=== PATIENT | female | born 1960 | race Caucasian/White ===

== ENCOUNTER 2024-01-18 11:36 | Outpatient (CLI) | payer MEDICARE, SELFPAY ==
[2024-01-18 12:50] LABS: Basophils Absolute Auto 0.1 K/mm3 (0.0-0.1); Basophils Percent Auto 0.6 % (0.2-1.2); Eosinophils Absolute Auto 0.2 K/mm3 (0-0.3); Eosinophils Percent Auto 1.5 % (0-4.4); Hematocrit 45.2 % (37.0-47.0); Hemoglobin 14.7 g/dL (12.0-15.0); Immature Granulocyte Absolute 0.03 K/mm3 (0.00-0.031); Immature Granulocyte Percent A 0.3 % (0-0.5); Lymphocytes Absolute Auto 3.35 K/mm3 (0.9-3.2); Lymphocytes Percent Auto 33.7 % (18.3-44.2); Mean Corpuscular HGB Conc 32.5 g/dl (32-36); Mean Corpuscular Hemoglobin 31.7 pg (26-34); Mean Corpuscular Volume 97.4 fl (80-100); Mean Platelet Volume 10.2 fl (7.4-10.4); Monocytes Absolute Auto 0.7 K/mm3 (0.1-0.6); Monocytes Percent Auto 7.3 % (2.6-8.5); Neutrophils Absolute Auto 5.6 K/mm3 (1.3-6.7); Neutrophils Percent Auto 56.6 % (45.5-73.1); Platelet Count Result 306 k/mm3 (150-375); Red Blood Count 4.64 M/mm3 (4.2-5.4); Red Cell Distribution Width 13.6 % (11.5-14.5); White Blood Count 9.9 K/mm3 (4.5-10.0)
[2024-01-18 13:00] LABS: Alanine Aminotransferase 18 U/L (6-35); Albumin Level 4.3 g/dL (3.5-5.1); Alkaline Phosphatase 90 U/L (38-126); Anion Gap 6 mmol/L (4-12); Aspartate Amino Transferase 26 U/L (14-36); Bilirubin,Total 0.6 mg/dL (0.2-1.3); Blood Urea Nitrogen 13 mg/dL (7-17); Calcium 9.1 mg/dL (8.4-10.2); Carbon Dioxide 24 mmol/L (22-30); Chloride 109 mmol/L (98-107); Estimated Glomerular Filt Rate > 60; Glucose 92 mg/dL (65-110); Potassium 4.2 mmol/L (3.4-5.0); Sodium 139 mmol/L (137-145)
[2024-01-18 18:18] LABS: Hepatitis C Virus Antibody Negative (Negative)
== END 2024-01-18 11:37 | disposition home or self-care (01) ==
LOC: ANHLAB 11:46
PROVIDERS: PCP Family Medicine; Visit Provider Family Medicine
DX: I10 Essential (primary) hypertension (principal); Z11.59 Encounter for screening for other viral diseases
CPT/HCPCS: 36415; 80053; 85025; 86803

== ENCOUNTER 2024-08-25 14:25 | Emergency (ER) | payer MEDICARE, SELFPAY ==
[2024-08-25 14:38] VITALS: BP 171/74; PULSE 70; RESP 18; TEMP 36.7; O2SAT 94
--- NOTE | 2024-08-25 15:29 | ED_ITS ---
HPI - General Adult General Chief complaint: Unspecified Stated complaint: ONIEL ANDREW Time Seen by Provider: 08/25/24 14:25 Source: patient Mode of arrival: ambulatory Limitations: no limitations History of Present Illness HPI narrative: Patient is a 64-year-old female who presents with concern for high blood pressure. Patient states she bought a new cuff in the past week it has been having readings all over the place including up to the 290s systolic. Patient has never had machine calibrated. Does report increased stress over the past 2 weeks with work and buying a new vehicle. Denies any change in diet or exercise. Denies any upper respiratory or other illnesses. Denies any vision changes, numbness, tingling or weakness to extremities. Patient has not been taking any ofol-ruu-tutxmnu cold and flu medications, has not been adding extra salt to meals. Patient states she has blood work ordered from PCP but has not gone to have it drawn. Related Data Home Medications ?Medication ?Instructions ?Recorded ?Confirmed ?Last Taken ?Type lisinopril 20 mg tablet 20 mg PO DAILY 08/25/24 08/25/24 Unknown History Allergies Allergy/AdvReac Type Severity Reaction Status Date / Time No Known Allergies Allergy Verified 08/25/24 14:49 Review of Systems Review of Systems: All systems reviewed & are unremarkable except as noted in HPI and below Constitutional: Constitutional: Denies body ache(s), Denies chills, Denies fatigue, Denies fever(s), Reports headache(s), Denies malaise and Denies weakness Eyes: Eyes: Denies blurry vision, Denies irritation and Denies loss of vision ENT: Denies otalgia, Denies headache(s), Denies nasal discharge, Denies sinus pain and Denies sore throat Cardiovascular: Cardiovascular: Denies chest pain, Denies irregular heart rhythm and Denies dyspnea Respiratory: Respiratory: Denies dyspnea Gastrointestinal: Gastrointestinal: Denies abdominal pain, Denies melena, Denies hematochezia, Denies diarrhea, Denies nausea and Denies vomiting Musculoskeletal: Musculoskeletal: Denies back pain, Denies myalgias and Denies arthralgias Integumentary/Breasts: Skin/Breast: Denies pruritus and Denies rash Neurologic: Reports headache(s), Denies loss of vision and Denies weakness Psychiatric: Psychiatric: Reports no additional psychiatric complaints Endocrine: Endocrine: Denies fatigue PMFSH Family History Family History Father Family history of lung cancer Mother Family history of lung cancer Social History Social History Smoking status: Heavy tobacco smoker Second hand tobacco smoke exposure: No Alcohol intake: current Comments At time of signature, agree with nursing past medical, surgical, social and family history. There is no relevant family history pertinent to the presenting complaint. Exam Const: General: cooperative, healthy appearing, comfortable, no acute distress and well nourished Nutritional Appearance: well nourished Orientation/consciousness: patient oriented x3 Limitations: no limitations HENMT: Head: normal to inspection, normocephalic and atraumatic Ears: hearing grossly normal bilaterally and external ears normal Face/Nose/Sinus: Normal external nose present, normal facial exam and face symmetric Face and sinus: normal facial exam and face symmetric Mouth: Yes lip normal Eyes: General: appearance normal, both eyes and all related structures Alignment and Position: alignment normal and position normal Periorbital: periorbital findings normal Eyelids: eyelids normal Pupils: Equal, round and reactive pupils present EOM: EOMs intact bilaterally Neck: Neck: normal visual inspection, full ROM and supple Chest: Chest palpation & inspection: normal inspection of the chest Resp: Effort & Inspection: normal respiratory effort and able to speak in complete sentences Auscultation: clear to auscultation bilaterally Cardio: Rate: regular rate Rhythm: regular rhythm Heart sounds: S1 normal heart sound present and S2 normal heart sound present GI: Inspection: normal to inspection Skin: General skin exam: normal color and no rashes or lesions noted Neuro: General: patient oriented x3 and moves all extremities Cranial nerves: Yes Equal, round and reactive pupils present Speech: normal speech Gait exam (Neuro): Normal gait present Extrem: General: normal to inspection, full ROM and no edema Psych: Appearance: grossly normal and well kempt Mental Status: mental status grossly normal Speech and movement: Normal speech and movement present Affect: normal affect Attitude: cooperative Thought process: Normal thought process present Course Course Emergency Course: Patient is aware of diagnosis, understands and agrees to treatment plan. Anticipatory guidance given. Patient agrees to follow-up as directed and is aware of reasons to seek care at the emergency department. Portions of this record may have been created with voice recognition software Level of Care: Express Care Visit Vital Signs Vital signs: Vital Signs Temperature 36.7 C 08/25/24 14:38 Pulse Rate 70 08/25/24 14:38 Respiratory Rate 18 08/25/24 14:38 Blood Pressure 171/74 H 08/25/24 14:38 Pulse Oximetry 94 08/25/24 14:38 Oxygen Delivery Room Air 08/25/24 14:38 Temperature 36.7 C 08/25/24 14:38 Pulse Rate 70 08/25/24 14:38 Respiratory Rate 18 08/25/24 14:38 Blood Pressure 171/74 H 08/25/24 14:38 Pulse Oximetry 94 08/25/24 14:38 Oxygen Delivery Room Air 08/25/24 14:38 Reviewed Medical Decision Making MDM Narrative Medical decision making narrative: Discuss in detail the importance of following up with PCP and getting recommended blood drawn. Patient has no changes in hypertension medication and has been taking them as prescribed. Discussed signs and symptoms requiring emergency department. Discussed relaxation techniques and ways to help decrease stress. Discussed limiting salt intake, but this states she does not add salt to meals. Pt well hydrated appearing, in no respiratory distress, hemodynamically stable. Recommend supportive care. The patient is stable at time of discharge the clinical impression was discussed and the patient was given the opportunity to ask questions, which were addressed as completely as possible given the information available at present. Anticipatory guidance and return to care precautions were discussed and the importance of primary care follow-up was stressed and encouraged. The patient voiced understanding of the plan, indications to return, and the need for follow-up. Exam findings show no acute concerns or changes Patient is appropriate for outpatient treatment and follow-up. Vital Signs Vital Signs: Vital Signs Temperature 36.7 C 08/25/24 14:38 Pulse Rate 70 08/25/24 14:38 Respiratory Rate 18 08/25/24 14:38 Blood Pressure 171/74 H 08/25/24 14:38 Pulse Oximetry 94 08/25/24 14:38 Oxygen Delivery Room Air 08/25/24 14:38 Temperature 36.7 C 08/25/24 14:38 Pulse Rate 70 08/25/24 14:38 Respiratory Rate 18 08/25/24 14:38 Blood Pressure 171/74 H 08/25/24 14:38 Pulse Oximetry 94 08/25/24 14:38 Oxygen Delivery Room Air 08/25/24 14:38 Reviewed Lab Data Lab results reviewed: Yes I reviewed the patient's lab results. Discharge Plan Discharge Clinical Impression: Hypertension Qualifiers: Hypertension type: primary hypertension Qualified Code(s): I10 - Essential (primary) hypertension Patient Disposition: Home, Self-Care Condition: Stable Instructions: Hypertension (ED) Additional Instructions: Make sure to go get scheduled labs drawn to see how kidneys are functioning along with general electrolytes. Try relaxation techniques every night to help decrease blood pressure and lower stress levels. Your blood pressure was elevated above 120/80 today at Urgent Care. This puts you above the threshold for follow up visit with a primary care provider. High blood pressure does not usually cause any symptoms, however it may lead to kidney failure, stroke, heart disease just to name a few if untreated . Many people are anxious when seeing a provider or nurse. As a result, you are not diagnosed with hypertension at this time unless your blood pressure is persistently high at two office visits at least one week apart. Some things that can help lower blood pressure are lifestyle modifications, such as light exercise, decreased salt in diet, and weight loss. It is important to follow up with a PCP about this within 1 week. Patient Language: Congolese Prescriptions: No Action lisinopril 20 mg tablet 20 mg PO DAILY Bevespi Aerosphere 9-4.8 mcg HFA aerosol inhaler 2 puff INHALATION BID Qty: 5.9 3RF Follow-up/Referrals: Jimy Gonzalez MD [Primary Care Provider] - 3 Days Time of Disposition: 15:33
== END 2024-08-25 15:41 | disposition home or self-care (01) ==
PROVIDERS: Emergency Provider Nurse Practitioner Family; PCP Family Medicine
DX: I10 Essential (primary) hypertension (principal); F17.200 Nicotine dependence, unspecified, uncomplicated
CPT/HCPCS: 99211; G0463

== ENCOUNTER 2024-11-25 11:11 | Outpatient (CLI) | payer MEDICARE, SELFPAY ==
[2024-11-25 13:10] LABS: Basophils Percent Auto 0.3 % (0.2-1.2); Eosinophils Absolute Auto 0.1 K/mm3 (0-0.3); Eosinophils Percent Auto 0.7 % (0-4.4); Hematocrit 47.4 % (37.0-47.0); Hemoglobin 15.5 g/dL (12.0-15.0); Immature Granulocyte Absolute 0.03 K/mm3 (0.00-0.031); Immature Granulocyte Percent A 0.3 % (0-0.5); Lymphocytes Percent Auto 30.1 % (18.3-44.2); Mean Corpuscular HGB Conc 32.7 g/dl (32-36); Mean Corpuscular Hemoglobin 31.2 pg (26-34); Mean Corpuscular Volume 95.4 fl (80-100); Mean Platelet Volume 10.7 fl (7.4-10.4); Monocytes Absolute Auto 0.6 K/mm3 (0.1-0.6); Monocytes Percent Auto 6.9 % (2.6-8.5); Neutrophils Absolute Auto 5.3 K/mm3 (1.3-6.7); Neutrophils Percent Auto 61.7 % (45.5-73.1); Platelet Count Result 262 k/mm3 (150-375); Red Blood Count 4.97 M/mm3 (4.2-5.4); Red Cell Distribution Width 13.2 % (11.5-14.5); White Blood Count 8.7 K/mm3 (4.5-10.0)
[2024-11-25 13:30] LABS: Alanine Aminotransferase 19 U/L (6-35); Albumin Level 4.4 g/dL (3.5-5.1); Alkaline Phosphatase 97 U/L (38-126); Anion Gap 9 mmol/L (4-12); Aspartate Amino Transferase 29 U/L (14-36); Bilirubin,Total 0.7 mg/dL (0.2-1.3); Blood Urea Nitrogen 18 mg/dL (7-17); Calcium 9.1 mg/dL (8.4-10.2); Carbon Dioxide 26 mmol/L (22-30); Chloride 103 mmol/L (98-107); Cholesterol 195 mg/dL (0-200); Estimated Glomerular Filt Rate > 60; Glucose 83 mg/dL (65-110); HDL Direct 41 mg/dL; Potassium 4.1 mmol/L (3.4-5.0); Sodium 138 mmol/L (137-145); Triglycerides 97 mg/dL (<150)
[2024-11-25 13:41] LABS: LDL Cholesterol Direct 115 mg/dL
--- OUTSIDE RECORDS SUMMARY | 2024-11-26 12:33 | XMS_ITS | Patient Health Record ---
Author Organization [facility] Address [address] [place] [address] Care Team Providers Care Police Cadet Name Role Phone Lucinda Tena Primary Care Provider [phone] Allergies No Known Allergies Reason For Referral No Information Medications Medication SIG (Take, Route, Fr equency, Duration) Notes Start Date End Date Status Blood Pressure Kit - as directed for 999 days Active Lisinopril 20 MG 1 tablet Orally Once a day for 90 days Active Social History Tobacco Use: Social History Observation Description Date Details (start date - stop date) Heavy tobacco s moker NA - NA Sex Assigned At : Social History Observation Description Sex Assigned At Female Dont use, Tobacco Use/Smoking Question Answer Notes Are you a heavy tobacco smoker Additional Findings: Tobacco User Heavy cigarett e smoker (20-39 cigs/day) Alcohol Screen (Audit-C) Question Answer Notes Did you have a drink containing alcohol in the p ast year? No Section Notes: Problems Problem Type SNOMED Code ICD Code Onset Dates Problem Status W/U Status Risk Notes Problem Vitamin D deficiency (29288859) Vitamin D deficiency, unspecified (E55.9) Active confirmed Problem Tobacco user (561205571) Nicotine dependence, unspecified, uncomplicated (F17.200) Active confirmed Problem Emphysema (59324746) Emphysema, unspecified (J43.9) Active confirmed Problem Acute exacerbation of chronic obstructive airways disease (351802262) Chronic obstructive pulmonary disease with (acute) exacerbation (J44.1) Active confirmed Problem Hypertension (97201482) Hypertension (I10) Active confirmed Problem Depression (459894786) Depression (F32.9) 9 Active confirmed Problem Tobacco use (330913256) Tobacco use disorder (F17.200) Active confirmed Plan Of Treatment Pending Test Test Name Order Date MAMMOGRAM BILAT, SCREENING 12/30/2018 Insurance Providers Payer Name Payer Address Payer Phone Subscriber Number Group Number Insured Name Patient Relationship to Insured Coverage Start Date Coverage End Date [facility] Attn Claims Department [address] [place] [address] [phone] [id number] EduKaminiGretchen Self - patient is the insured 9 9 MEDICAID [address] [place] [address] [id number] Kamini Sorensenberly Self - patient is the insured 3 3 [facility] [address] [place] [address] [id number] Janiya Sorensenly Self - patient is the insured 3 Medical (General) History Medical History History ICD Code Chronic obstructive pulmonary disease (acute) exacerbation Emphysema, unspecified Depression Surgical History Surgery Date(Month/Year) oviarian cyst 1982 gallbladder and appendix 1998 hernia removed 2014 Hospitalization History Reason Date(Month/Year)
--- OUTSIDE RECORDS SUMMARY | 2024-11-26 12:33 | XMS_ITS | Clinical Summary ---
Author Organization [facility] Address [address], [address] [address] Phone Care Team Providers Care Synthetic Filament Extruder Name Role Phone Isac Putnam APRN, CNP Primary Care Provide r Social History Tobacco Use Types Packs/Day Years Used Date Smoking Tobacco: Never Assessed Comments Unknown Sex and Gender Information Value Date Recorded Sex Assigned at Not on file Legal Sex Female 3:05 PM CDT Gender Identity Not on file Sexual Orientation Not on file Plan of Treatment Health Maintenance Due Date Last Done Comments DEXA Bone Density 1960 Hepatitis C Virus (HCV) Screening 1960 TdaP Immunization 1958 Pap Smear 1979 Cervical Cancer Screening (CCS) 1988 HPV/Cotest 1988 Cologuard 2008 Immunochemical Fecal Occult Blood 2008 Mammogram 2008 Pneumococcal Immunization (5 0+ years) (1 of 1 - PCV) 2008 Zoster Immunization (1 of 2) 2008 Colonoscopy 03/10/2024 03/10/2019 Colorectal Cancer Screening 03/10/2024 Influenza Immunization (#1) 2024 SARS-COV-2 Immunization ( - season) 2024 Respiratory Syncytial Virus (RSV) Immunization (Adult) (1 - 1-dose 75+ series) 2033 03/10/2019 Hepatitis B Immunization Aged Out No longer eligible based on patient's age to complete this topic Meningococcal Immunization (ACWY) Aged Out No longer eligible based on patient's age to complete this topic Rotavirus Immunization Aged Out No lo nger eligible based on patient's age to complete this topic Procedures Procedure Name Priority Date/Time Associated Diagnosis Comments COLONOSCOPY Routine 03/10/2019 from Last 3 Months or Most Recently Relevant to Health Maintenance Results * COLONOSCOPY (03/10/2019) Jeremie Ani Ramona DO PROCEDURE/MINOR SURGICAL ORDERA BLES Final Result from Last 3 Months or Most Recently Relevant to Health Maintenance Insurance MEDICAID [employer] Care Teams Synthetic Filament Extruder Relationship Specialty Start Date End Date Isac Putnam, CODING COMPLIANCE AUDITOR, UNIT RECEPTIONIST [address] [facility] [place] [address] PCP - General Advanced Practice Nurse 12/24/18
--- OUTSIDE RECORDS SUMMARY | 2024-11-26 12:33 | XMS_ITS | CONTINUITY OF CARE DOCUMENT ---
Author Name monica anderson Address Unknown Organization [facility] Address [address] [facility] [address] [place] [address] Phone [phone] Care Team Providers Care Regional Education Manager Name Role Phone monica anderson Unavailable Unavailable
--- OUTSIDE RECORDS SUMMARY | 2024-11-26 12:33 | XMS_ITS ---
Author Organization [facility] Address [address] [place] [address] Care Team Providers Care In Flight Refueling Craftsman Name Role Phone Lucinda Tena Primary Care Provider [phone] REASON FOR VISIT 4 mo f/u Social History Sex Assigned At : Social History Observation Description Sex Assigned At Female Encounters Encounter Location Date Provider Diagnosis [address] [place] [address] 09/30/2023 Lucinda Tena Plan Of Treatment No Information Progress Notes * Gretchen SORENSENDOB:[birth year] (64 yo F)Acc No.[id number]:09/30/2023 UNLOCKED PROGRESS NOTE Progress Notes Patient: Gretchen JUNIOR Provider: DEE DEE Crawford, COMMODITY LEAD, BREAKING MACHINE OPERATOR-BC, BREAKING MACHINE OPERATOR-C :1960 A ge:63 Y S ex:Female Date:09/30/2023 [facility] [facility] Subjective: * Chief Complaints: * 1 . 4 mo f/u. * Medical History: Objective: * Vitals: Assessment: Plan: * Treatment: * * Electronic signature of Brayan Tena APRN, [id number] on 11/26/2024 at 12:33 PM CDT Sign off status: Pending * Provider: DEE DEE Crawford, COMMODITY LEAD, BREAKING MACHINE OPERATOR-BC, BREAKING MACHINE OPERATOR-C Date: 0 09/30/2023 Generated for Printing/Faxing/eTransmitting on: 0 11/26/2024 12:33 PM CDT
== END 2024-11-25 11:12 | disposition home or self-care (01) ==
LOC: ANHLAB 11:12
PROVIDERS: PCP Family Medicine; Visit Provider Registered Nurse
DX: E78.5 Hyperlipidemia, unspecified (principal); I10 Essential (primary) hypertension
CPT/HCPCS: 36415; 80053; 80061; 85025

== ENCOUNTER 2025-02-15 10:12 | Outpatient (CLI) | payer MEDICARE, SELFPAY ==
--- NOTE | ~2025-02-15 | CT_ITS ---
EXAMINATION: CT diagnostic chest wo con DATE: 02/15/2025 10:46 INDICATION: Follow up from mal edilma TECHNIQUE: Computed tomography (CT) of the chest was performed without intravenous contrast. Addition al 3D reconstructions utilizing coronal maximum intensity projection (MIP) were performed. Automated exposure control and iterative reconstruction technique were employed. The dose-length product was 15 2.63 mGy-cm. COMPARISON: Chest CT dated 03/12/2018 FINDINGS: Mild emphysema. Calcite nodules in the superior segment of the left lower lobe along with calcified l eft hilar lymph nodes consistent with old granulomatous disease. There are a few unchanged 3 mm or sm aller nodules in the right upper lobe and a 2 mm nodule right lower lobe which given interval stabili ty are also most consistent with old granulomatous disease. No new or enlarging pulmonary nodules george ntified. No pneumonia, pulmonary edema or pleural effusion. Heart size is normal. Atherosclerotic cor onary artery calcific location. No pericardial effusion. Thoracic aorta is normal in caliber. No path ologically enlarged thoracic a few splenic calcific lesions consistent with old granulomatous disease . Cholecystectomy clips at the gallbladder fossa. Mild thoracic spondylosis with chronic mild anterio r wedging at T7. lymphadenopathy. . IMPRESSION: 1. No interval change with mild emphysema. Reviewed, dictated and finalized at location A.
--- OUTSIDE RECORDS SUMMARY | 2025-02-15 10:21 | XMS_ITS | Clinical Summary ---
Author Organization [facility] Address [address], [address] [address] Phone Care Team Providers Care Attending Pathologist Name Role Phone Isac Putnam APRN, CNP [...] Health Maintenance Due Date Last Done Comments Hepatitis C Virus (HCV) Screening 1960 TdaP Immunization 1958 Cologuard 2003 Immunochemical Fecal Occult Blood 2003 Pneumococcal Immunization (5 0+ years) (1 of 1 - PCV) 2008 Zoster Immunization (1 of 2) 2008 Colonoscopy 03/10/2024 03/10/2019 Colorectal Cancer Screening 03/10/2024 SARS-COV-2 Immunization ( season) 2024 Influenza Immunization (#1) 2025 Respiratory Syncytial Virus (RSV) Immunization (Adult) (1 - 1-dose 75+ series) 2033 Hepatitis B Immunization Aged Out No longer eligible based on patient's age to complete this topic Human Papillomavirus (HPV) Immunization Aged Out No longer eligible b ased on patient's age to complete this topic Meningococcal Immunization (ACWY) Aged Out No longer eligible based on patient's age to complete this topic Rotavirus Immunization Aged Out No lo nger eligible based on patient's age to complete this topic Procedures Procedure Name Priority Date/Time Associated Diagnosis Comments HM COLONOSCOPY Routine 03/10/2019 from Last 3 Months or Most Recently Relevant to Health Maintenance Results * COLONOSCOPY (03/10/2019) Jeremie Greene DO PROCEDURE/MINOR SURGICAL ORDERA BLES Final Result from Last 3 Months or Most Recently Relevant to Health Maintenance [place] [address] MEDICAID [employer] Care Teams Attending Pathologist Relationship Specialty Start Date End Date Isac Putnam, ROUTER OPERATOR RADIAL, AUTOPSY ASSISTANT [address] [facility] [place] [address] PCP - General Advanced Practice Nurse 12/24/18
--- OUTSIDE RECORDS SUMMARY | 2025-02-15 10:21 | XMS_ITS | Patient Health Record ---
Author Organization [facility] Address [address] [facility] [address] [place] [address] Care Team Providers Care Fundraising Coordinator Name Role Phone Jenaro Dean Unavailable [phone] Reason For Referral No Information Plan Of Treatment No Information
--- OUTSIDE RECORDS SUMMARY | 2025-02-15 10:22 | XMS_ITS | Patient Health Record ---
Author Organization [facility] Address [address] [place] [address] Care Team Providers Care Group Leader Wafer Polishing Name Role Phone Lucinda Tena Primary Care Provider [phone] Allergies No Known Allergies Reason For Referral No Information Medications Medication SIG (Take, Route, Fr equency, Duration) Notes Start Date End Date Status Blood Pressure Kit - as directed; Duration: 999 days Active Lisinopril 20 MG 1 tablet Orally Once a day; Duration: 90 days Active Social History Tobacco Use: [...] Status Risk Notes Problem Vitamin D deficiency (57881454) Vitamin D deficiency, unspecified (E55.9) Active confirmed Problem Tobacco user (079950175) Nicotine dependence, unspecified, uncomplicated (F17.200) Active confirmed Problem Emphysema (36946195) Emphysema, unspecified (J43.9) Active confirmed Problem Acute exacerbation of chronic obstructive airways disease (396743491) Chronic obstructive pulmonary disease with (acute) exacerbation (J44.1) Active confirmed Problem Hypertension (26580888) Hypertension (I10) Active confirmed Problem Depression (122191687) Depression (F32.9) 9 Active confirmed Problem Tobacco use (106044693) Tobacco use disorder (F17.200) Active confirmed Plan Of Treatment Pending Test Test Name Order Date MAMMOGRAM BILAT, SCREENING 12/30/2018 Insurance Providers Payer Name Payer Address Payer Phone Subscriber Number Group Number Insured Name Patient Relationship to Insured Coverage Start Date Coverage End Date [facility] Att Claims Department [address] [place] [address] [id number] Edu Gretchen Self - patient is the insured 9 9 MEDICAID [address] [place] [address] [id number] Kamini Sorensenberly Self - patient is the insured 3 3 [facility] [address] [place] [address] [id number] Janiya Sorensenly Self - patient is the insured 3 Medical (General) History Medical History History ICD Code Chronic obstructive pulmonary disease (acute) exacerbation Emphysema, unspecified Depression Surgical History Surgery Date(Month/Year) oviarian cyst 1982 gallbladder and appendix 1997 hernia removed 2014 Hospitalization History Reason Date(Month/Year)
--- OUTSIDE RECORDS SUMMARY | 2025-02-15 10:22 | XMS_ITS ---
Author Organization [facility] Address [address] [place] [address] Care Team Providers Care Perinatology Physician Name Role Phone Lucinda Tena Primary Care Provider [phone] REASON FOR VISIT 4 mo f/u Social History Sex Assigned At : Social History Observation Description Sex Assigned At Female Encounters Encounter Location Date Provider Diagnosis [address] [place] [address] 09/30/2023 Lucinda Tena Plan Of Treatment No Information Progress Notes * Gretchen SORENSENDOB:[birth year] (64 yo F)Acc No.[id number]:09/30/2023 UNLOCKED PROGRESS NOTE Progress Notes Patient: Gretchen JUNIOR Provider: DEE DEE Crawford, STEAM TENDER, ORAL THERAPIST-BC, ORAL THERAPIST-C :1960 A ge:63 Y S ex:Female Date:09/30/2023 [facility] [facility] Subjective: * Chief Complaints: * 1 . 4 mo f/u. * Medical History: Objective: * Vitals: Assessment: Plan: * Treatment: * * Electronic signature of Brayan Tena APRN, [id number] on 02/15/2025 at 10:21 AM CDT Sign off status: Pending * Provider: DEE DEE Crawford, STEAM TENDER, ORAL THERAPIST-BC, ORAL THERAPIST-C Date: 0 09/30/2023 Generated for Printing/Faxing/eTransmitting on: 0 02/15/2025 10:21 AM CDT
== END 2025-02-15 10:13 | disposition home or self-care (01) ==
PROVIDERS: PCP Family Medicine; Visit Provider Nurse Practitioner Family
DX: R92.8 Other abnormal and inconclusive findings on diagnostic imaging of breast (principal)
CPT/HCPCS: 71250

== ENCOUNTER 2025-02-21 14:17 | Outpatient (CLI) | payer MEDICARE, SELFPAY ==
--- NOTE | ~2025-02-21 | MM_ITS ---
EXAMINATION: MM screening yun BI w hank HISTORY: Screening TECHNIQUE: Craniocaudal and mediolateral oblique 3-D tomosynthesis images were obtained and synthetic 2-D images were generated. CAD analysis was submitted and interpreted. COMPARISON: 04/02/2016 BREAST PARENCHYMAL COMPOSITION: Not dense: There are scattered areas of fibroglandular density. FINDINGS: There is no evidence of suspicious mass, calcification, or architectural distortion to sugg est malignancy in either breast. There has been no suspicious interval change. IMPRESSION: 1. No mammographic evidence of malignancy. 2. Recommend routine screening mammography in one year. BI-RADS Category 1: Negative Reviewed, dictated and finalized at location B.
--- OUTSIDE RECORDS SUMMARY | 2025-02-21 14:28 | XMS_ITS | Clinical Summary ---
Author Organization [facility] Address [address], [address] [address] Phone Care Team Providers Care Processing Manager Name Role Phone Isac Putnam APRN, CNP [...] Relevant to Health [place] [address] [place] [address] MEDICAID [employer] Care Teams Processing Manager Relationship Specialty Start Date End Date Isac Putnam, UTILITY GELATIN MAKER, CEO AND FOUNDER [address] [facility] [place] [address] PCP - General Advanced Practice Nurse 12/24/18
--- OUTSIDE RECORDS SUMMARY | 2025-02-21 14:28 | XMS_ITS | Patient Health Record ---
Author Organization [facility] [employer] Address [address] [facility] [address] [place] [address] Care Team Providers Care Reimbursement Representative Name Role Phone Jenaro Dean Unavailable [phone] Reason For Referral No Information Plan Of Treatment No Information
--- OUTSIDE RECORDS SUMMARY | 2025-02-21 14:29 | XMS_ITS ---
Author Organization Formerly [facility] Address [address] [place] [address] Care Team Providers Care Blending Tank Tender Helper Name Role Phone Lucinda Tena Primary Care Provider [id number] REASON FOR VISIT 4 mo f/u Social History Sex Assigned At : Social History Observation Description Sex Assigned At Female Encounters Encounter Location Date Provider Diagnosis [address] [place] [address] 09/30/2023 Lucinda Tena Plan Of Treatment No Information Progress Notes * Gretchen SORENSENDOB:[birth year] (64 yo F)Acc No.[id number]:09/30/2023 UNLOCKED PROGRESS NOTE Progress Notes Patient: Gretchen JUNIOR Provider: DEE DEE Crawford, CORE DRIER, AIRLINE PILOT/FIRST OFFICER-BC, AIRLINE PILOT/FIRST OFFICER-C :1960 A ge:63 Y S ex:Female Date:09/30/2023 [facility] Subjective: * Chief Complaints: * 1 . 4 mo f/u. * Medical History: Objective: * Vitals: Assessment: Plan: * Treatment: * * Electronic signature of Brayan Tena APRN, [id number] on 02/21/2025 at 02:28 PM CDT Sign off status: Pending * Provider: DEE DEE Crawford, CORE DRIER, AIRLINE PILOT/FIRST OFFICER-BC, AIRLINE PILOT/FIRST OFFICER-C Date: 0 09/30/2023 Generated for Printing/Faxing/eTransmitting on: 0 02/21/2025 02:28 PM CDT
--- OUTSIDE RECORDS SUMMARY | 2025-02-21 14:29 | XMS_ITS | Patient Health Record ---
Author Organization [facility] Address [address] [place] [address] Care Team Providers Care Music Therapist Name Role Phone Lucinda Tena Primary Care Provider [phone] Allergies No Known Allergies Reason For Referral [...] Status Risk Notes Problem Vitamin D deficiency (07116760) Vitamin D deficiency, unspecified (E55.9) Active confirmed Problem Tobacco user (847248729) Nicotine dependence, unspecified, uncomplicated (F17.200) Active confirmed Problem Emphysema (75112957) Emphysema, unspecified (J43.9) Active confirmed Problem Acute exacerbation of chronic obstructive airways disease (059739224) Chronic obstructive pulmonary disease with (acute) exacerbation (J44.1) Active confirmed Problem Hypertension (57434394) Hypertension (I10) Active confirmed Problem Depression (240643743) Depression (F32.9) 9 Active confirmed Problem Tobacco use (716809523) Tobacco use disorder (F17.200) Active confirmed Plan Of Treatment Pending Test Test Name Order Date MAMMOGRAM BILAT, SCREENING 12/30/2018 Insurance Providers Payer Name Payer Address Payer Phone Subscriber Number Group Number Insured Name Patient Relationship to Insured Coverage Start Date Coverage End Date [facility] Att Claims Department [address] [place] [address] [id number] Edu Gretchen Self - patient is the insured 9 9 [employer] [address] [place] [address] [id number] Kamini Sorensenberly Self - patient is the insured 3 3 [facility] [address] [place] [address] [id number] Janiya Sorensenly Self - patient is the insured 3 Medical (General) History Medical History History ICD Code Chronic obstructive pulmonary disease (acute) exacerbation Emphysema, unspecified Depression Surgical History Surgery Date(Month/Year) oviarian cyst 1982 gallbladder and appendix 1997 hernia removed 2014 Hospitalization History Reason Date(Month/Year)
== END 2025-02-21 14:18 | disposition home or self-care (01) ==
PROVIDERS: PCP Family Medicine; Visit Provider Nurse Practitioner Family
DX: Z12.31 Encounter for screening mammogram for malignant neoplasm of breast (principal)
CPT/HCPCS: 77063; 77067